=== PATIENT | male | born 1990 | race Hispanic/Latino ===

== ENCOUNTER 2024-12-06 15:40 | Emergency (ER) | payer OTHER ==
[~2024-12-06] VITALS: Ht 185.4 cm; Wt 145.1 kg
[2024-12-06 15:43] VITALS: PULSE 89; RESP 16; TEMP 98.6
[2024-12-06] MEDS ORDERED: SODIUM CHLORIDE FLUSH 10 ML SYR IV PRN (16:00)
[2024-12-06 16:09] LABS: BASOPHILS % 0.5 % (0.0-1.0); EOSINOPHILS % 2.6 % (0.0-6.0); LYMPHOCYTES % 21.4 % (18.0-39.1); MONOCYTES % 6.9 % (4.4-11.3); NEUTROPHILS % 67.8 % (38.7-80.0); RED CELL DISTRIBUTION WIDTH 13.0 % (11.7-14.4)
[2024-12-06 16:42] LABS: EST GLOMERULAR FILTRATION RATE 100 ML/MIN (>=60)
[2024-12-06 19:13] VITALS: BP 141/73; PULSE 75; RESP 19; O2SAT 100
== END 2024-12-06 18:40 | disposition home or self-care (01) ==
LOC: ER 15:59
DX: R06.02 Shortness of breath (principal); R07.89 Other chest pain; G47.30 Sleep apnea, unspecified
CPT/HCPCS: 36415; 71046; 80053; 83880; 84484; 85025; 85379; 93005; 94760; 99284